=== PATIENT | male | born 1945 | race Caucasian/White ===

== ENCOUNTER → 2018-06-08 | Outpatient (CLI) | payer MEDICARE, OTHER ==
--- NOTE | 2018-06-08 13:20 | Diagnostic Imaging Report ---
EXAM: CHEST 2 VIEWS, PA and lateral DATE: 06/08/2018 11:40 AM Time stamp on exam: 11:42 AM INDICATION: Shortness of breath with cough COMPARISON: None FINDINGS: LINES/TUBES: There are sternotomy wire sutures and multiple small mediastinal clips present. LUNGS: Mild pulmonary vascular congestion. PLEURA: Small bilateral pleural effusions. HEART AND MEDIASTINUM: Heart is enlarged. BONES AND SOFT TISSUES: No acute findings. IMPRESSION: Cardiomegaly, small effusions with mild pulmonary vascular congestion. Signed by: Dr. Rigo Chirinos DO on 06/08/2018 1:16 PM
== END ==
LOC: RAD 11:23
PROVIDERS: ATTEND Internal Medicine Geriatric Medicine
DX: R05 Cough (principal); R06.2 Wheezing
CPT/HCPCS: 71046